=== PATIENT | male | born 1960 | race Hispanic/Latino ===

== ENCOUNTER 2018-08-27 03:17 | Emergency (ER) | payer MEDICAID ==
[2018-08-27 03:23] VITALS: BMI 24.7
[2018-08-27 03:28] VITALS: RESP 18; TEMP 97.8
[2018-08-27] MEDS ORDERED: DiphenhydrAMINE 50 mg/ml Inj IVP STA (03:30)
--- NOTE | 2018-08-27 03:37 | ED PDOC ---
Arrival/HPI - General Historian: Patient, Family - History of Present Illness Narrative History of Present Illness (Text): 08/27/18 03:32 57 yo M with PMHx of DM presenting to the ED for intractable headache x 1 day. Per family at bedside, headache began yesterday evening and has significantly worsened today. Patient denies any history of headaches. Patient states pain is located b/l temporal and frontal region, tight band wrapped around his head. Pain is constant and severe, rated 10/10. Took ibuprofen at home, which did not help alleviate pain. Denies any photophobia/phonophobia, no associated nausea or vomiting, no changes in vision. PMHx: DM PSHx: denies Allergies: NKDA Home Medications: pt unable to tell med for DM, vitamin D tablets FHx: denies Social Hx: former smoker-1ppd, quit 5 years ago; denies alcohol or illicit drug use Time/Duration: 24 hours Symptom Onset: Sudden Symptom Course: Worsening Quality: Pressure, Tightness Severity Level: Severe Activities at Onset: Light <James Malcolm - Last Filed: 08/27/18 05:26> <Tucker Bullock - Last Filed: 08/27/18 06:17> - General Chief Complaint: Headache Time Seen by Provider: 08/27/18 03:19 Past Medical History - Provider Review Nursing Documentation Reviewed: Yes - Endocrine/Metabolic Hx Diabetes Mellitus Type 1: Yes Hx Diabetes Mellitus Type 2: Yes - Psychiatric Hx Substance Use: No <James Malcolm - Last Filed: 08/27/18 05:26> Family/Social History - Physician Review Nursing Documentation Reviewed: Yes Family/Social History: No Known Family HX Smoking Status: Former Smoker Hx Alcohol Use: No Hx Substance Use: No <James Malcolm - Last Filed: 08/27/18 05:26> Allergies/Home Meds <James Malcolm - Last Filed: 08/27/18 05:26> <Tucker Bullock - Last Filed: 08/27/18 06:17> Allergies/Adverse Reactions: Allergies No Known Allergies Allergy (Verified 08/27/18 03:23) Review of Systems - Review of Systems Constitutional: Normal Eyes: Normal ENT: Normal Respiratory: Normal Cardiovascular: Normal Gastrointestinal: Normal Genitourinary Male: Normal Musculoskeletal: Normal Skin: Normal Neurological: Headache, Dizziness Endocrine: Normal Hemo/Lymphatic: Normal Psychiatric: Normal <James Malcolm - Last Filed: 08/27/18 05:26> Physical Exam Vital Signs Reviewed: Yes Vital Signs Temp Pulse Resp BP Pulse Ox 08/27/18 03:23 97.8 F 66 18 125/73 100 Temperature: Afebrile Blood Pressure: Normal Pulse: Regular Respiratory Rate: Normal Appearance: Positive for: Non-Toxic Pain Distress: Moderate Mental Status: Positive for: Alert and Oriented X 3 - Systems Exam Head: Present: Atraumatic, Normocephalic Pupils: Present: PERRL Extroacular Muscles: Present: EOMI Conjunctiva: Present: Normal Ears: Present: Normal Mouth: Present: Moist Mucous Membranes Nose (External): Present: Atraumatic Neck: Present: Normal Range of Motion Respiratory/Chest: Present: Clear to Auscultation, Good Air Exchange. No: Re spiratory Distress, Accessory Muscle Use, Wheezes, Rales, Rhonchi Cardiovascular: Present: Regular Rate and Rhythm, Normal S1, S2. No: Murmurs Abdomen: Present: Normal Bowel Sounds. No: Tenderness, Distention, Rebound, Guarding, Mass/Organomegaly Upper Extremity: Present: Normal Inspection, Normal ROM, NORMAL PULSES, Capi llary Refill < 2s. No: Cyanosis, Edema, Tenderness, Swelling Lower Extremity: Present: Normal Inspection, NORMAL PULSES, Normal ROM, Capillary Refill < 2 s. No: Edema, CALF TENDERNESS, Cyanosis, Tenderness, Swelling Neurological: Present: CN II-XII Intact, Speech Normal Skin: Present: Warm, Dry, Rashes, Normal Color Psychiatric: Present: Alert, Oriented x 3, Normal Insight, Normal Concentration <James Malcolm - Last Filed: 08/27/18 05:26> Vital Signs Temp Pulse Resp BP Pulse Ox 08/27/18 03:23 97.8 F 66 18 125/73 100 <Tucker Bullock - Last Filed: 08/27/18 06:17> Medical Decision Making ED Course and Treatment: 08/27/18 03:42 Impression: 57 yo M with PMHx of DM presenting to ED with intractable headache x 1 day. Plan: --benadryl 25 mg IVP x1 --Reglan 10 mg IVP x1 --CT head w/o contrast --fingerstick glucose --monitor and disposition - RAD Interpretation Narrative RAD Interpretations (Text): 08/27/18 04:43 CT head: no acute infarcts or demonstrated hemorrhage; acute R sphenoid sinusitis. Radiology Orders: 08/27/18 03:30 HEAD W/O CONTRAST [CT] Stat Single Pointed Operator: ED Physician - Medication Orders Current Medication Orders: Diphenhydramine HCl (Benadryl) 25 mg IVP STAT STA Stop: 08/27/18 03:31 Metoclopramide HCl (Reglan) 10 mg IVP STAT STA Stop: 08/27/18 03:31 <James Malcolm - Last Filed: 08/27/18 05:26> ED Course and Treatment: 08/27/18 04:22 A 57 year old male presents to the emergency department with a complaint of 2 day duration worsening headache. In agreement with resident note, which includes further HPI details. Patient was seen and evaluated with resident, came up with plan and treatment together. CT Scan of the Brain without IV Contrast Electronically signed on Aug 27, 2018 4:23:43 AM EDT by: Tenisha John M.D., Certified by ABR, MSK, Neuroradiology Impression: Normal unenhanced CT scan of the brain. Acute right sphenoid sinusitis. - Lab Interpretations Lab Results: Lab Results 08/27/18 03:45: POC Glucose (mg/dL) 129 H - RAD Interpretation Radiology Orders: 08/27/18 03:30 HEAD W/O CONTRAST [CT] Stat - Medication Orders Current Medication Orders: Discontinued Medications Diphenhydramine HCl (Benadryl) 25 mg IVP STAT STA Stop: 08/27/18 03:31 Last Admin: 08/27/18 03:53 Dose: 25 mg IVP Administration Document 08/27/18 03:53 CNR (Rec: 08/27/18 03:53 CNR [id number]) Charges for Administration # of IVP Administrations 1 Metoclopramide HCl (Reglan) 10 mg IVP STAT STA Stop: 08/27/18 03:31 Last Admin: 08/27/18 03:53 Dose: 10 mg IVP Administration Document 08/27/18 03:53 CNR (Rec: 08/27/18 03:53 CNR [id number]) Charges for Administration # of IVP Administrations 1 <Tucker Bullock - Last Filed: 08/27/18 06:17> - PA / REAGENT TENDER / Resident Statement / has reviewed & agrees with the documentation as recorded. / has examined the patient and agrees with the treatment plan. - Scribe Statement The provider has reviewed the documentation as recorded by the Allyiblaureano Lee Provider Allyibe Attestation: All medical record entries made by the Scribe were at my direction and personally dictated by me. I have reviewed the chart and agree that the record accurately reflects my personal performance of the history, physical exam, medical decision making, and the department course for this patient. I have also personally directed, reviewed, and agree with the discharge instructions and disposition. <Tucker Bullock - Last Filed: 08/27/18 06:17> Disposition/Present on Arrival - Present on Arrival History of DVT/PE: No History of Uncontrolled Diabetes: No Urinary Catheter: No History of Decub. Ulcer: No History Surgical Site Infection Following: None <GoldJames - Last Filed: 08/27/18 05:26> - Present on Arrival Any Indicators Present on Arrival: No - Disposition Have Diagnosis and Disposition been Completed?: Yes Disposition Time: 06:15 Patient Plan: Discharge <Tucker Bullock - Last Filed: 08/27/18 06:17> - Disposition Diagnosis: Headache Patient Problems: Current Active Problems Problem Status Onset Headache Acute Hyperglycemia Acute Condition: GOOD Discharge Instructions (ExitCare): Tension Headache (DC) Additional Instructions: Take meds as prescribed/follow up with your doctor this week Prescriptions: Acetaminophen/Butalbital/Caf [Fioricet] 1 tab PO Q6 PRN #16 tab PRN Reason: Headache Referrals: Stephanie Boudreaux MD [Primary Care Provider] - Follow up with primary Forms: [employer] (Greek)
[2018-08-27 06:26] VITALS: BP 124/74; PULSE 80; O2SAT 99
--- NOTE | 2018-08-27 10:27 | CT ---
Date of service: 08/27/2018 PROCEDURE: CT HEAD WITHOUT CONTRAST. HISTORY: intractable headache COMPARISON: None available. TECHNIQUE: Axial computed tomography images were obtained through the head/brain without intravenous contrast. Radiation dose: Total exam DLP = 695.20 mGy-cm. This CT exam was performed using one or more of the following dose reduction techniques: Automated exposure control, adjustment of the mA and/or kV according to patient size, and/or use of iterative reconstruction technique. FINDINGS: HEMORRHAGE: No intracranial hemorrhage. BRAIN: Normal perkins-white matter differentiation and density are appreciated throughout the cerebrum and cerebellum with the brainstem appearing unremarkable as well. There is no mass effect. There is no suspicious extra-axial fluid collection and the midline brain anatomy appears diffusely unremarkable. VENTRICLES: Unremarkable. No hydrocephalus. CALVARIUM: Unremarkable. PARANASAL SINUSES: Unremarkable as visualized. No significant inflammatory changes. MASTOID AIR CELLS: Unremarkable as visualized. No inflammatory changes. OTHER FINDINGS: None. IMPRESSION: Unremarkable noncontrast head CT.
== END 2018-08-27 06:26 | disposition home or self-care (01) ==
LOC: ED 03:17
DX: R51 Headache (principal); E11.9 Type 2 diabetes mellitus without complications
CPT/HCPCS: 70450; 82948; 96374; 96375; 99285; J1200; J2765